=== PATIENT | female | born 1975 | race Hispanic/Latino ===

== ENCOUNTER 2019-11-10 12:03 | Inpatient (IN) | payer MEDICAID, OTHER, SELFPAY ==
[~2019-11-10] VITALS: Ht 165.1 cm; Wt 71.8 kg
[2019-11-10] MEDS ORDERED: ONDANSETRON HCL 4 MG/2 ML VIAL ONE (12:28)
[2019-11-10] MEDS ORDERED: MORPHINE SULFATE 4 MG/1ML SYG ONE (12:28)
[2019-11-10] MEDS ORDERED: ZOSYN 3.375GM+NS 50ML 50 ML IV ONE (14:15)
[2019-11-10] MEDS ORDERED: INSULIN HUMULIN R 100 UNIT/ML 3ML ONE ×3 (14:48→21:21)
[2019-11-10] MEDS ORDERED: ACETAMINOPHEN EXTRA STRENGTH 500 MG TABLET ONE ×2 (14:59→22:47)
[2019-11-10] MEDS ORDERED: MAG HYDROX/AL HYDROX/SIMETH ES 30 ML SUSP UDCUP PO PRN (15:45)
[2019-11-10] MEDS ORDERED: ONDANSETRON HCL 4 MG/2 ML VIAL IV PRN (15:45)
[2019-11-10] MEDS ORDERED: POTASSIUM CHLORIDE 20MEQ/100ML 100 ML IV PRN (15:45)
[2019-11-10] MEDS ORDERED: POTASSIUM CHLORIDE 10% ELIXIR 20 MEQ/15 ML UDCUP PO PRN (15:45)
[2019-11-10] MEDS ORDERED: ACETAMINOPHEN 325 MG TAB PO PRN (15:45)
[2019-11-10] MEDS ORDERED: LACTULOSE 20 GM/30 ML UDCUP PO PRN (15:45)
[2019-11-10] MEDS ORDERED: CEFTRIAXONE SODIUM 1 GM IV SCH (15:45)
[2019-11-10] MEDS ORDERED: LIDOCAINE HCL-MPF 1% 2ML VIAL IV PRN (15:45)
[2019-11-10] MEDS ORDERED: MORPHINE SULFATE 4 MG/1ML SYG IV PRN (15:45)
[2019-11-10] MEDS ORDERED: CEFTRIAXONE SODIUM 1 GM ONE (16:11)
[2019-11-10] MEDS ORDERED: HYDRALAZINE HCL 20 MG/ML VIAL IV PRN (16:15)
[2019-11-10] MEDS ORDERED: INSULIN HUMULIN R 100 UNIT/ML 3ML SQ SCH (16:30)
[2019-11-10] MEDS ORDERED: HYDROCODONE/ACETAMINOPHEN 5/325 MG TAB ONE (22:47)
[2019-11-11] MEDS ORDERED: LACTATED RINGERS 1000ML 1,000 ML IV ONE (04:39)
[2019-11-11] MEDS ORDERED: SODIUM CHLORIDE 0.9% 1000ML 1,000 ML IV SCH (05:15)
[2019-11-11] MEDS ORDERED: NOREPINEPHRINE 4MG/NS 250ML 250 ML IV SCH (05:15)
[2019-11-11] MEDS ORDERED: SODIUM CHLORIDE 0.9% 1000ML 1,000 ML IV ONE (05:29)
[2019-11-11] MEDS ORDERED: ZOSYN 3.375GM+NS 50ML 50 ML IV ONE (05:29)
[2019-11-11] MEDS ORDERED: ZOSYN 3.375GM+NS 50ML 50 ML IV SCH (06:00)
[2019-11-11] MEDS: INSULIN GLARGINE 100 UNITS/ML 10 ML VIAL SQ SCH (08:45)
[2019-11-11] MEDS ORDERED: GLUCAGON 1MG KIT 1 MG ML IM PRN (08:45)
[2019-11-11] MEDS ORDERED: DEXTROSE 50%-WATER 50 ML DISP.SYRIN IV PRN (08:45)
[2019-11-11] MEDS ORDERED: ENOXAPARIN SODIUM 40 MG/0.4 ML SYRINGE SQ ONE (08:59)
[2019-11-11] MEDS ORDERED: RENAL DOSE IV SCH (09:00)
[2019-11-11] MEDS ORDERED: ENOXAPARIN SODIUM 40 MG/0.4 ML SYRINGE SQ SCH (09:00)
[2019-11-11] MEDS: ENOXAPARIN SODIUM 30 MG/0.3 ML SQ SCH (09:00)
[2019-11-11 10:10] VITALS: BP 119/76
[2019-11-11] MEDS ORDERED: CEFTRIAXONE SODIUM 1 GM ONE (10:20)
[2019-11-11] MEDS: LACTATED RINGERS 1000ML 1,000 ML IV SCH ×2 (10:33→22:04)
[2019-11-11] MEDS: CEFTRIAXONE SODIUM 1 GM IV SCH (10:38)
[2019-11-11] MEDS: INSULIN HUMULIN R 100 UNIT/ML 3ML SQ SCH ×2 (11:26→16:22)
[2019-11-11] MEDS: INSULIN R PO SS1 SQ SCH ×2 (11:27→16:20)
[2019-11-11] MEDS ORDERED: INSULIN HUMULIN R 100 UNIT/ML 3ML SQ SCH (11:30)
[2019-11-11] MEDS: ZOSYN 3.375GM+NS 50ML 50 ML IV SCH ×2 (13:11→21:58)
[2019-11-11 16:00] VITALS: BP 121/75
--- NOTE | 2019-11-11 17:48 | NUR ---
CORBIN NOTE/IA UNABLE TO MEET IN ROOM WITH PATIENT, NEXT OF KIN CALLED, DWIGHT FREIRE. PER MOTHER, PATIENT LIVES WITH HER AND CHILDREN, INDEPENDENT WITH ADLS, NO HOME HEALTH IN USE, NO DME IN USE, HAS [facility] [address] FOR [facility] BUT NOT COMPLETELY SURE OF THIS, AND FEELS SAFE FOR PATIENT TO RETURN HOME ONCE DISCHARGED FROM HOSPITAL. Addendum: 11/11/19 at 1750 by MAKAYLA WHITNEY RN CM Amended: Links added.
[2019-11-11 20:00] VITALS: BP 120/74
[2019-11-11] MEDS: HYDROCODONE/ACETAMINOPHEN 5/325 MG TAB PO PRN (22:14)
[2019-11-12] VITALS (7 sets, daily range): BP systolic 117–152; BP diastolic 69–94
[2019-11-12] MEDS: INSULIN GLARGINE 100 UNITS/ML 10 ML VIAL SQ SCH ×2 (00:11→21:26)
[2019-11-12] MEDS: INSULIN R PO SS1 SQ SCH ×5 (00:25→20:18)
[2019-11-12] MEDS: ZOSYN 3.375GM+NS 50ML 50 ML IV SCH (05:30)
[2019-11-12] MEDS: LACTATED RINGERS 1000ML 1,000 ML IV SCH ×2 (05:31→14:09)
[2019-11-12] MEDS: HYDROCODONE/ACETAMINOPHEN 5/325 MG TAB PO PRN ×2 (05:35→17:29)
[2019-11-12] MEDS: INSULIN HUMULIN R 100 UNIT/ML 3ML SQ SCH ×3 (07:39→17:21)
[2019-11-12] MEDS: CEFTRIAXONE SODIUM 1 GM IV SCH (10:12)
[2019-11-12] MEDS: ENOXAPARIN SODIUM 30 MG/0.3 ML SQ SCH (10:15)
[2019-11-13 03:44] VITALS: BP 148/89
[2019-11-13] MEDS: INSULIN HUMULIN R 100 UNIT/ML 3ML SQ SCH ×3 (05:53→18:30)
[2019-11-13] MEDS: INSULIN R PO SS1 SQ SCH ×4 (05:53→20:10)
[2019-11-13 07:38] VITALS: BP 150/90
[2019-11-13] MEDS: CEFTRIAXONE SODIUM 1 GM IV SCH (10:15)
[2019-11-13] MEDS: POTASSIUM CHLORIDE 20 MEQ ERTAB PO PRN ×5 (10:15→22:22)
[2019-11-13] MEDS: ENOXAPARIN SODIUM 30 MG/0.3 ML SQ SCH (10:16)
[2019-11-13 11:57] VITALS: BP 154/91
[2019-11-13 15:49] VITALS: BP 136/89
[2019-11-13] MEDS: LISINOPRIL 5 MG TABLET PO SCH (18:28)
[2019-11-13] MEDS ORDERED: POTASSIUM CHLORIDE 20MEQ/100ML 100 ML IV PRN ×2 (18:45)
[2019-11-13] MEDS ORDERED: POTASSIUM CHLORIDE 20 MEQ ERTAB PO PRN (18:45)
[2019-11-13] MEDS ORDERED: POTASSIUM CHLORIDE 10% ELIXIR 20 MEQ/15 ML UDCUP PO PRN (18:45)
--- NOTE | 2019-11-13 20:00 | NUR ---
patient alert and oriented x 4. she walks around in the room and able to ambulate to the restroom. she has some pain in her back that radiates to her abdomen in the beginning of the shift and then it fades away after narco medication. she sleeps well throughout the night. i gave her an apple juice at 05:30 due to her blood sugar of 90. will continue to monitor her sugar levels.
[2019-11-13] MEDS: INSULIN GLARGINE 100 UNITS/ML 10 ML VIAL SQ SCH (20:13)
[2019-11-13 20:15] VITALS: BP 148/93
[2019-11-13] MEDS: HYDROCODONE/ACETAMINOPHEN 5/325 MG TAB PO PRN (20:26)
[2019-11-13 23:35] VITALS: BP 122/80
[2019-11-14] MEDS ORDERED: MAGNESIUM 2GM PREMIX 50ML 50 ML IV PRN (00:45)
[2019-11-14 03:58] VITALS: BP 141/82
[2019-11-14] MEDS: INSULIN HUMULIN R 100 UNIT/ML 3ML SQ SCH ×2 (05:07→12:07)
[2019-11-14] MEDS: INSULIN R PO SS1 SQ SCH ×2 (05:08→11:30)
[2019-11-14 09:29] VITALS: BP 137/85
[2019-11-14] MEDS: LISINOPRIL 5 MG TABLET PO SCH (09:56)
[2019-11-14] MEDS: CEFTRIAXONE SODIUM 1 GM IV SCH (09:56)
[2019-11-14] MEDS: ENOXAPARIN SODIUM 30 MG/0.3 ML SQ SCH (09:57)
[2019-11-14 11:55] VITALS: BP 147/89
== END 2019-11-14 15:00 | disposition home or self-care (01) | DRG 872 ==
LOC: EDH 12:03 → EDHIP 12:04 → 4DH 11-11 10:07
PROVIDERS: ADMIT Hospitalist; ATTEND Hospitalist
DX: A41.51 Sepsis due to Escherichia coli [E. coli] (principal); N10 Acute pyelonephritis; N17.9 Acute kidney failure, unspecified; R65.20 Severe sepsis without septic shock; F17.200 Nicotine dependence, unspecified, uncomplicated; Z90.49 Acquired absence of other specified parts of digestive tract; E11.9 Type 2 diabetes mellitus without complications; E66.9 Obesity, unspecified; R31.29 Other microscopic hematuria; Z68.26 Body mass index [BMI] 26.0-26.9, adult; Z20.828 Contact with and (suspected) exposure to other viral communicable diseases
CPT/HCPCS: 36415; 74176; 80048; 80053; 81001; 81025; 82948; 83036; 83605; 83690; 83735; 84132; 84145; 84484; 85025; 86140; 87040; 87077; 87088; 87186; 87426; 93005; G0378; J0696; J1650; J1815; J2270; J2405; J2543; J3475; J3480; J3490; J7030; J7120; U0003

== ENCOUNTER 2024-12-11 13:05 | Emergency (ER) | payer OTHER, BC ==
[~2024-12-11] VITALS: Ht 165.1 cm; Wt 74.8 kg
[2024-12-11 13:10] VITALS: TEMP 98.3
[2024-12-11 14:09] LABS: IMMATURE GRANULOCYTE ABSOLUTE 0.06 K/uL (0-1); NUCLEATED RED BLOOD CELLS 0.0 % (0.0-0.19); PLATELET COUNT (AUTO) 222 K/uL (130-400); RED BLOOD CELL COUNT(AUTO) 4.80 MIL/uL (4.00-5.50); RED CELL DISTRIBUTION WIDTH 11.9 % (11.0-15.5); WHITE BLOOD COUNT (AUTO) 11.9 K/uL (4.8-10.8)
[2024-12-11 14:17] LABS: CREATININE 0.7 mg/dL (0.5-1.0); GLOMERULAR FILTR. RATE CALC 105.0 mL/min (>90); GLUCOSE,RANDOM 356.0 mg/dL (70-105); SODIUM SERUM 132.0 mmol/L (136-145); UREA NITROGEN, BLOOD 13.0 mg/dL (7-18)
[2024-12-11 14:21] LABS: ASPARTATE AMINOTRANSFERASE 11.0 U/L (10-37); CREATINE KINASE, TOTAL 36.0 U/L (21-232); TOTAL PROTEIN, SERUM 7.5 g/dL (6.0-8.3)
[2024-12-11 14:40] LABS: SARS-CoV-2, RNA, NAAT NEGATIVE SARS CoV-2 (NEGATIVE)
[2024-12-11 14:47] LABS: INFLUENZA TYPE A Negative For Type A (NEGATIVE); INFLUENZA TYPE B Negative For Type B (NEGATIVE)
[2024-12-11 14:49] LABS: APPEARANCE,URINE CLEAR (CLEAR); GLUCOSE, URINE (UA) >=1000 mg/dL (NEGATIVE); LEUKOCYTE ESTERASE ,URINE 25 Leu/uL (NEGATIVE); NITRATE,URINE NEGATIVE (NEGATIVE); OCCULT BLOOD,URINE NEGATIVE (NEGATIVE)
[2024-12-11 14:50] LABS: ADD UA MICROSCOPIC YES; HCG,QUALITATIVE URINE NEGATIVE (NEGATIVE)
[2024-12-11 14:52] LABS: OTHER CASTS, URINE 1 /LPF (None Seen); SQUAMOUS EPITHELIAL CELL,UR RARE /HPF (0-2)
--- NOTE | 2024-12-11 14:58 | ERN ---
General Chief Complaint: Fatigue Stated Complaint: GBW Time Seen by MD: 13:08 Source: patient History of Present Illness Initial Comments Patient is a 49-year-old female coming in complaining of generalized body weakness. Per patient these symptoms has been ongoing for couple of days. Mild abdominal discomfort as well. Allergies: Coded Allergies: No Known Allergies (Verified Allergy, Unknown, 11/10/19) Home Meds No Active Prescriptions or Reported Meds Past Medical History Past Medical History: Diabetes-Type II Past Surgical History: Appendectomy ROS Dictation CONSTITUTIONAL: No chills, no fever, no weakness, no diaphoresis, no malaise. HEAD/FACE: No signs of trauma. EENT: No eye pain, no blurred vision, no tearing, no double vision, no ear pain, no ear discharge, no nose pain, no nasal congestion, no throat pain, no throat swelling, no mouth pain. RESPIRATORY: No cough, no orthopnea, no SOB, no stridor, no wheezing. CARDIOVASCULAR: No chest pain, no edema, no palpitations, no syncope. GASTROINTESTINAL/ABDOMINAL: No abdominal pain, no constipation, no diarrhea, no nausea, no vomiting. GENITOURINARY: No abnormal discharge, no dysuria, no frequent urination, no hematuria. No complaints of pain in the genitals. MUSCULOSKELETAL: No back pain, no gout, no joint pain, no joint swelling, no muscle pain, no muscle stiffness, no neck pain. INTEGUMENTARY: No change in color, no change in hair/nails, no dryness, no lesion, no lumps, no rash. NEUROLOGICAL/PSYCH: No anxiety, not depressed, no emotional problem, no headache, no numbness, no pre-existing deficit, no history of seizures, no tremors, no weakness. HEMATOLOGIC/LYMPHATIC: Not anemic, no history of blood clots, no apparent bleeding, no bruising, glands not swollen. All Systems Negative, Except as Noted. Physical Exam Physical Exam Dictation VITAL SIGNS: Reviewed. GENERAL APPEARANCE: Alert, oriented x3, no acute distress, obese. HEAD AND FACE: Non-traumatic. EYES: PERRL, pink conjunctivas, eyelid no trauma, anterior chamber clear. EARS: Pinnas intact and no signs of trauma or erythema. Ear canals clear and no discharge. TMs no erythema. NOSE: No discharge, no bleeding. OROPHARYNX: Mouth normal, teeth no caries, tongue pink. Pharynx clear, no er ythema. Tonsils no exudates, no abscesses noted. Mucous membrane moist. NECK: Supple, non-tender, no thyromegaly, no masses, no JVD, no bruits. BREAST: Deferred. CHEST: No tenderness, no crepitus, no paradoxical movement, no retractions. LUNGS: Clear, well-ventilated, symmetric, no rales, no wheezing, no rhonchi, no stridor, good breath sounds bilaterally. HEART: Regular rate, regular rhythm, no murmur, no gallops. VASCULAR: No peripheral edema. ABDOMEN: Soft, positive bowel sounds, nondistended, no guarding, nontender, no rebound, no masses no hepatomegaly, no splenomegaly, no Wallace's sign, no hernias. RECTAL: Deferred. GENITAL: Deferred. NEUROLOGICAL: Normal speech, gross motor function intact, gross sensory function intact. MUSCULOSKELETAL: Neck nontender, full range of motion, back nontender, full range of motion. EXTREMITIES: Nontender, full range of motion. SKIN: Color pink, dry, no turgor, no rash, no lacerations, no abrasions, no contusions. LYMPHATICS: Deferred. Results Laboratory and Microbiology Lab and Micro Result Laboratory Tests Test 12/11/24 13:20 12/11/24 14:00 12/11/24 14:20 Urine Color LIGHT-YELLOW (YELLOW) Urine Appearance CLEAR (CLEAR) Urine pH 6.0 (5.0-8.0) Urine Specific [place] 1.030 (1.001-1.031) Urine Protein NEGATIVE mg/dL (NEGATIVE) Urine Glucose (UA) >=1000 mg/dL (NEGATIVE) H Urine Ketones NEGATIVE mg/dL (NEGATIVE) Urine Occult Blood NEGATIVE (NEGATIVE) Urine Nitrate NEGATIVE (NEGATIVE) Urine Bilirubin NEGATIVE mg/dL (NEGATIVE) Urine Urobilinogen 0.2 mg/dL (0.2-1.0) Urine Leukocyte Esterase 25 Ally/uL (NEGATIVE) H Urine RBC 2-5 /HPF (0-1) H Urine WBC 2-5 /HPF (0-1) H Urine Squamous Epithelial Cells RARE /HPF (0-2) Urine Bacteria None /HPF (None Seen) Urine Other Casts 1 /LPF (None Seen) Urine HCG, Qualitative NEGATIVE (NEGATIVE) White Blood Count 11.9 K/uL (4.8-10.8) H Red Blood Count 4.80 MIL/uL (4.00-5.50) Hemoglobin 14.8 g/dL (12.0-16.0) Hematocrit 41.4 % (36-48) Mean Corpuscular Volume 86.3 fL (79-99) Mean Corpuscular Hemoglobin 30.8 pg (27.0-33.0) Mean Corpuscular Hemoglobin Concent 35.7 g/dL (32.0-36.0) Red Cell Distribution Width 11.9 % (11.0-15.5) Platelet Count 222 K/uL (130-400) Mean Platelet Volume 11.9 fL (7.5-10.5) H Immature Granulocyte % (Auto) 0.5 % (0-1) Neutrophils (%) (Auto) 79.8 % (40.0-77.0) H Lymphocytes (%) (Auto) 14.9 % (21.0-51.0) L Monocytes (%) (Auto) 4.0 % (3.0-13.0) Eosinophils (%) (Auto) 0.3 % (0.0-8.0) Basophils (%) (Auto) 0.5 % (0.0-5.0) Neutrophils # (Auto) 9.5 K/uL (1.8-7.7) H Lymphocytes # (Auto) 1.8 K/uL (1.0-4.8) Monocytes # (Auto) 0.5 K/uL (0.1-1.0) Eosinophils # (Auto) 0.04 K/uL (0.00-0.70) Basophils # (Auto) 0.06 K/uL (0.00-0.20) Absolute Immature Granulocyte (auto 0.06 K/uL (0-1) Nucleated Red Blood Cells 0.0 % (0.0-0.19) Sodium Level 132 mmol/L (136-145) L Potassium Level 4.4 mmol/L (3.5-5.1) Chloride Level 97 mmol/L (101-111) L Carbon Dioxide Level 29 mmol/L (21-32) Blood Urea Nitrogen 13 mg/dL (7-18) Creatinine 0.7 mg/dL (0.5-1.0) Glomerular Filtration Rate Calc 105 mL/min (>90) Random Glucose 356 mg/dL (70-105) H Total Calcium 9.2 mg/dL (8.5-10.1) Total Bilirubin 0.4 mg/dL (0.2-1.0) Aspartate Amino Transf (AST/SGOT) 11 U/L (10-37) Alanine Aminotransferase (ALT/SGPT) 22 U/L (12-78) Alkaline Phosphatase 157 U/L (50-136) H Total Creatine Kinase 36 U/L (21-232) Troponin I High Sensitivity 7 ng/L (4-50) Total Protein 7.5 g/dL (6.0-8.3) Albumin 3.4 g/dL (3.5-5.0) L Lipase 35 U/L (16-77) Influenza Type A Antigen Negative For Type A Influenza Type B Antigen Negative For Type B SARS-CoV-2, RNA, NAAT NEGATIVE SARS CoV-2 Labs Reviewed?: Yes MDM MDM: Differential diagnosis:, dehydration, UTI, Rationale: Tests considered and ordered secondary to shared decision making include: Previous outside records reviewed: Old ER visits. Risk of complication and/or morbidity or mortality of patient management: None Medications-Per medication reconciliation Need for hospitalization: Patient does not meet criteria for hospitalization. Need for emergency major/minor surgery: No Patient is a 49-year-old female coming in with multiple complaints. Per patient she has been having weakness lower abdominal discomfort. Laboratory workup positive for dehydration urinary tract infection patient was hydrated with IV fluids given some medications for ongoing management of UTI at home. Patient will be discharged in stable condition. ED Course Orders Procedure Category Date Status Time Cbc With Differential LAB 12/11/24 Complete 13:39 Comprehensive LAB 12/11/24 Complete Metabolic Panel 13:39 Troponin I High LAB 12/11/24 Complete Sensitivity 13:39 ,Urine Test LAB 12/11/24 Complete 13:39 Urinalysis Profile LAB 12/11/24 Complete 13:39 Creatine Kinase, Total LAB 12/11/24 Complete 13:39 Lipase LAB 12/11/24 Complete 13:39 Covid Rna Naat LAB 12/11/24 Complete 13:39 Influenza Type A & B, LAB 12/11/24 Complete Rapid 13:39 0.9%Nacl 1000ml (Ns PHA 12/11/24 Complete 1000ml) 15:00 Current Medications Medications (Trade) Dose Ordered Sig/Earl Route PRN Reason Start Time Stop Time Status Last Admin Dose Admin Sodium Chloride 1,000 ml @ 0 mls/hr ONCE ONCE IV 12/11/24 15:00 12/11/24 15:01 DC Vital Signs Date Time Temp Pulse Resp B/P (MAP) Pulse Ox O2 Delivery O2 Flow Rate FiO2 12/11/24 13:10 98.2 80 18 189/97 99 Room Air 0 DX & DISP Disposition: Discharge Departure Impression: Primary Impression: UTI (urinary tract infection) Additional Impression: Dehydration Condition: Stable Scripts Cephalexin Monohydrate (Keflex) 500 Mg Cap 1 CAP PO BID for 10 Days, #20 CAP 0 Refills Prov: MARCELLUS CHOUDHARY MD 12/11/24 Additional Instructions: FOLLOW-UP WITH PRIMARY CARE PROVIDER IN 1 TO 2 DAYS. TAKE MEDICATIONS DIRECTED HERE IN THE EMERGENCY ROOM. OKAY TO CONTINUE HOME MEDICATIONS UNLESS OTHERWISE DISCUSSED DURING YOUR VISIT IN THE EMERGENCY ROOM TODAY. RETURN TO YOUR NEAREST EMERGENCY ROOM IF SYMPTOMS WORSEN OR IF THERE IS NO IMPROVEMENT. CALL 911 IF YOU NEED IMMEDIATE ASSISTANCE. TAKE TYLENOL [id number] NEEDED AND IF NO CONTRAINDICATIONS ARE PRESENT. INCREASE ORAL HYDRATION. A WOUND CULTURE OR URINE CULTURE WAS ORDERED HERE IN THE EMERGENCY ROOM DEPARTMENT PLEASE FOLLOW-UP WITH PRIMARY CARE PROVIDER AND ADVISE THEM TO GET REPORTS FROM OUR FACILITY. IF YOU HAD ANY KATHI WRAP/SPLINTS THAT WERE APPLIED HERE, PLEASE DO NOT REMOVE THEM UNTIL YOU SEE YOUR PRIMARY CARE OR SPECIALTY. Referrals: Referrals: SELF,REFERRAL (PCP) JIL PEREA MD Time of Disposition: 15:04 MARCELLUS CHOUDHARY MD Dec 11, 2024 14:58
[2024-12-11] MEDS ORDERED: CEPH500B PO (15:04)
[2024-12-11] MEDS: 0.9%NACL 1000ML 1,000 ML IV ONE (15:48)
[2024-12-11 16:15] VITALS: BP 162/93; PULSE 79; RESP 17; O2SAT 98
== END 2024-12-11 16:20 | disposition home or self-care (01) ==
LOC: EDH 13:05
DX: N39.0 Urinary tract infection, site not specified (principal); E86.0 Dehydration; E11.9 Type 2 diabetes mellitus without complications; Z90.49 Acquired absence of other specified parts of digestive tract; Z20.822 Contact with and (suspected) exposure to COVID-19
CPT/HCPCS: 36415; 80053; 81001; 81025; 82550; 83690; 84484; 85025; 87635; 87804; 99283